=== PATIENT | female | born 1975 | race Caucasian/White ===

== ENCOUNTER → 2023-12-07 | Outpatient (CLI) | payer OTHER ==
[2023-12-07 09:57] LABS: HEMATOCRIT 40.2 % (37.0-47.0); HEMOGLOBIN 12.6 g/dL (12.5-16.0); MEAN PLATELET VOLUME 9.2 fl (7.4-10.4); RED BLOOD COUNT 4.32 M/mm3 (4.10-5.30); RED CELL DISTRIBUTION WIDTH 14.2 % (11.5-14.5); WHITE BLOOD COUNT 11.3 K/mm3 (4.8-10.8)
[2023-12-07 10:06] LABS: ALBUMIN 3.9 g/dL (3.5-5.0)
[2023-12-07 10:08] LABS: CALCIUM 9.5 mg/dL (8.3-10.5)
[2023-12-07 10:09] LABS: TOTAL PROTEIN 7.1 g/dL (6.4-8.3)
[2023-12-07 10:11] LABS: TOTAL BILIRUBIN 0.2 mg/dL (0.2-1.2)
[2023-12-07 23:06] LABS: HEPATITIS C VIRUS ANTIBODY Negative (Nonreactiv)
== END ==
LOC: LAB 09:42
PROVIDERS: Family Medicine
DX: F19.10 Other psychoactive substance abuse, uncomplicated (principal); F10.20 Alcohol dependence, uncomplicated; Z79.899 Other long term (current) drug therapy

== ENCOUNTER → 2024-01-25 | Outpatient (CLI) | payer MEDICAID | LOC: LAB 14:59 | DX: E66.01 Morbid (severe) obesity due to excess calories (principal) ==